=== PATIENT | male | born 1955 | race Caucasian/White ===

== ENCOUNTER 2019-04-15 22:36 | Emergency (ER) | payer MEDICAID, SELFPAY ==
[2019-04-15 22:38] VITALS: BP 146/99; PULSE 87; RESP 15; TEMP 36.6; O2SAT 96; BMI 27.3
--- NOTE | 2019-04-15 22:57 | RAD_ITS ---
STUDY: X-RAY - LEFT ANKLE REASON FOR EXAM: Male, 63 years old. Twisted ankle. Lateral pain and swelling. TECHNIQUE: view(s) of the ankle. COMPARISON: None. FINDINGS: Normal visualized distal tibia and fibula. Normal medial and lateral malleoli. Normal tibiotalar articulation and ankle mortise. Normal visualized talus. There are enthesophytes at the insertions of the Achilles tendon and plantar aponeurosis upon an otherwise normal calcaneus. The visualized subtalar, talonavicular, calcaneocuboid and tarsal articulations are normal. There is lateral soft tissue swelling suggesting sprain. RAD/Ankle min 3 Views IMPRESSION: Lateral soft tissue swelling without acute fracture or dislocation. Electronically Signed: Marcio Taylor DO at 23:16 EST Tel [phone], Service support ,
--- NOTE | 2019-04-15 23:34 | ED.DCSUM_ITS ---
- ER Visit Summary Date of Service: 04/15/19 Chief Complaint: [Injury to left ankle] History of Present Illness: The patient is a 63 M presents to the emergency department with an injury to the left ankle that occurred this afternoon. Patient states that he stepped on a bottom step near his mailbox and reach for the mailbox and slipped and twisted the ankle. Patient is able to bear some weight but having pain. He denies any other injuries. He has no medical history. [] Physical Examination: [Ankle-patient has soft tissue swelling over the lateral malleolus. Patient has some ecchymosis and bruising noted. He has tenderness to palpation over the lateral malleolus. No pain at the proximal fibular head. No pain at the base of the fifth metatarsal. Neurovascular intact distally.] Test Results: [Rays of the left ankle showed no fractures and only soft tissue swelling.] Emergency Department Course and Treatment: [An air splint and he refused crutches.] Treatment Plan: [Was advised to ice and elevate the extremity. Patient use ibuprofen or Tylenol for discomfort. Patient advised to follow-up with primary care physician manager enterprise content management for no doc within next 5 to 10 days.] Disposition: [Discharged home in stable condition.] Impression: [Left ankle sprain] This note was generated with [employer] dictation software. It may contain incorrect words, spelling, and punctuation that were not noted in review of the chart prior to signing ED Disposition - Plan for ED Patient: Referrals: Care Physician,No Primary [Primary Care Provider] -
--- NOTE | 2019-04-15 23:36 | ED.DEP ---
ED Disposition - Plan for ED Patient: Instructions: Sprain, Ankle, with X-Ray Referrals: Care Physician,No Primary [Primary Care Provider] - Johnny Colorado III, MD [STAFF PHYSICIAN] - 5-7 Days
== END 2019-04-15 23:42 | disposition home or self-care (01) ==
LOC: ED 23:19
PROVIDERS: Emergency Provider Emergency Medicine
DX: S93.402A Sprain of unspecified ligament of left ankle, initial encounter (principal); X50.1XXA Overexertion from prolonged static or awkward postures, initial encounter; W18.31XA Fall on same level due to stepping on an object, initial encounter; Y93.9 Activity, unspecified; Y92.9 Unspecified place or not applicable; Y99.9 Unspecified external cause status; Z72.0 Tobacco use
CPT/HCPCS: 73610; 99283

== ENCOUNTER → 2020-03-12 16:27 | Outpatient (CLI) | payer MEDICAID, SELFPAY ==
--- NOTE | 2020-03-12 16:29 | CT_ITS ---
STUDY: LOW DOSE CT LUNG CANCER SCREENING REASON FOR EXAM: Male, 64 years old. LUNG CANCER SCREENING, CURRENT SMOKER, 45+ YR SMOKER X 1PPD, TS=614 RADIATION DOSAGE (If Supplied By Facility): CTDIvol = ( 3.02 ) mGy, DLP = ( 102.32 ) mGycm TECHNIQUE: No contrast was administered. Low dose technique was utilized (average mAS-38 and kVp 120). 1.25 mm axial source images with a slice interval of 1.25-mm were reconstructed in lung windows. 2.5 mm axial source images with a slice interval of 2.5-mm were reconstructed in lung windows. 5.0 mm axial source images with a slice interval of 5.0-mm were reconstructed in soft tissue windows. Nodule measured using lung windows on PACS and/or independent workstation with automated measurement of minimum and maximum diameter. Nodule measurement reported as average diameter rounded to the nearest whole number. Growth is defined as an increase ins size of greater than 1.5 mm. COMPARISON: None. Findings: Lungs are moderately emphysematous with scattered myelomata all less than 3 mm, some calcified, scars and minimal atelectasis. There are no high-risk focal pulmonary findings. Central airways are patent. Pleural surfaces are intact. Mediastinal contents are normal but evaluated in limited fashion due to intrinsic limitations of technique. Corneae arteries are mildly diseased. Cardiac chambers are normal in size and shape. Pericardium is normal. Osseous structures are intact. CT/Low Dose CT Lung Screening IMPRESSION: Lung RADS category 2. Emphysema and granulomata. IMPORTANT NOTES FOR USE: ACR Lung-RADS Version 1.0 Assessment Categories Release Date: September 02, 2013 Category: Coded 0-4 bases on nodule(s) with highest degree of suspicion. Negative screen is defined as categories 1 and 2; a positive screen is defined as categories 3 and 4. Category 3 and 4A nodules that are unchanged on interval CT should be coded as category 2, and individuals returned to screening in 12 months. Category 4X: Category 3 or 4 nodules with additional imaging findings that increase the suspicion of lung cancer, such as spiculation, GGN that doubles in size in 1 year, enlarged lymph notes, etc. Category Modifiers: S (significant finding unrelated to lung cancer) and C (prior history of treated lung cancer) may be added to the 0-4 Lung-RADS Electronically Signed: Kam Tillman, at 20:06 EST Tel , Service support ,
== END ==
PROVIDERS: Referring Provider Nurse Practitioner Primary Care; Visit Provider Nurse Practitioner Primary Care
DX: Z12.2 Encounter for screening for malignant neoplasm of respiratory organs (principal); F17.210 Nicotine dependence, cigarettes, uncomplicated
CPT/HCPCS: G0297

== ENCOUNTER 2024-01-02 14:24 | Outpatient (CLI) | payer MEDICARE, SELFPAY ==
[2024-01-02 16:58] LABS: ALB/GLOB Ratio 0.8 RATIO (0.9-2.4); AST(SGOT) 57 U/L (15-37); Alanine Aminotransfer ALT/SGPT 68 U/L (16-61); Albumin, Serum 3.3 g/dL (3.2-5.0); Alkaline Phosphatase 76 U/L (45-117); Anion Gap 5 (5-15); BUN 14 mg/dL (7-18); Calcium,Total 9.2 mg/dL (8.5-10.1); Chloride 105 mmol/L (98-107); EST Glomerular Filtration Rate 79 mL/min (>60); Est Glom Filt Rate - Afr Amer 96 mL/min (>60); Globulin 4.4 g/dL (2.2-4.2); Glucose 97 mg/dL (74-106); Potassium 4.2 mmol/L (3.5-5.1); Protein, Total 7.7 g/dL (6.4-8.2); Sodium Level 140 mmol/L (136-145)
== END 2024-01-02 23:59 | disposition home or self-care (01) ==
PROVIDERS: PCP Family Medicine; Referring Provider Family Medicine; Visit Provider Family Medicine
DX: Z00.00 Encounter for general adult medical examination without abnormal findings (principal); Z82.3 Family history of stroke
CPT/HCPCS: 36415; 80053

== ENCOUNTER 2024-02-29 08:12 | Day surgery (SDC) | payer MEDICARE, MEDICAID, SELFPAY ==
[2024-02-29] VITALS (8 sets, daily range): BP systolic 115–151; BP diastolic 74–132; PULSE 64–80; RESP 16; TEMP 36.2–36.4; O2SAT 94–100; BMI 24.3
--- NOTE | 2024-02-29 08:35 | PRE.ANES_ITS ---
ASA Classification* ASA Classification ASA Classification: 2 Assessment & Plan Anesthesia* Anesthesia Assessment Anesthesia Assessment: Discussed sedation and/or anesthesia options, risks, benefits, and alternatives with patient/parents/legal guardian/POA. Questions invited. The patient/parents/legal guardian/POA seems to understand and agrees to proceed with anesthesia plan. Reviewed the physical assessment, medical history, allergy history and patient home medications list prior to surgery/procedure/anesthetic and documented any changes. Performed airway and anesthesia risk assessments. Anesthesia Type Anesthesia Type: MAC Anesthesia Focused Assessment* Airway Assessment Mouth opens: >3 cm Mallampati Score: II Focused Labs Anesthesia Preop lab: CBC CHEMISTRY Potassium 4.2 mmol/L (3.5-5.1) 01/02/24 14:26 Sodium 140 mmol/L (136-145) 01/02/24 14:26 BUN 14 mg/dL (7-18) 01/02/24 14:26 Creatinine 1.00 mg/dL (0.70-1.30) 01/02/24 14:26 Glucose 97 mg/dL (74-106) 01/02/24 14:26 COAG Pre-Assessment Diagnosis/Proposed Procedure Planned Operative Procedure(s): CSCOPE Anesthesia History Anesthesia History - clerk of superior court: Anesthesia History - clerk of superior court Hx Hospitalization No 02/28/24 12:23 Any Problems With Anesthesia No 02/28/24 12:23 Cholinesterase deficiency No 02/28/24 12:23 You/Your Family Experience No 02/28/24 12:23 fever (hyperthermia) with Relationship Recent Exposure to Contagious Disease Does patient have nerve No 02/28/24 12:23 stimulator Patient instructed to have device shut off --Does patient have Pacemaker or ICD? When Was Last Pacemaker Check QUESTION #4 FULL TEXT: You/Your Family Experience fever (hyperthermia) with Anesthesia Last Oral Intake Last Oral intake: Last Oral Intake NPO since Meds taken in AM with sips of water? Meds patient instructed to take am of surgery PONV PONV - clerk of superior court: PONV - clerk of superior court Female No 02/28/24 12:23 HX of Motion Sickness No 02/28/24 12:23 HX of N/V After Surgery No 02/28/24 12:23 Non-Smoker No 02/28/24 12:23 Duration of Surgery greater No 02/28/24 12:23 than 60 minutes Number of Risk Factors PONV Score Height & Weight Height & Weight: Anesthesia: Height & Weight Height 5 ft 8 in 01/26/24 13:31 Respiratory Assessment Respiratory Assessment - clerk of superior court: Respiratory Tract Infection Hx - clerk of superior court Hx Respiratory Tract Infection No 02/28/24 12:23 STOP Sleep Apnea STOP Sleep Apnea - clerk of superior court: STOP Sleep Apnea - clerk of superior court Hx Hypertension No 02/28/24 12:23 Hx Sleep Apnea No 02/28/24 12:23 CPAP BIPAP Do you snore loudly (louder No 02/28/24 12:23 than talking or can be heard Do you often feel tired/ No 02/28/24 12:23 fatigued/ sleepy during daytime? Has anyone observed you stop No 02/28/24 12:23 breathing during sleep? STOP Results Negative 02/28/24 12:23 QUESTION #5 FULL TEXT : Do you snore loudly (louder than talking or can be heard through closed doors)? 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 Specify any problems Hx of Preganancy in last 3 N/A 02/28/24 12:23 Months Nurse Filling Out Transfusion DSCHRIBER 02/28/24 12:23 & Questions: Date: 02/28/24 02/28/24 12:23 Time: 12:25 02/28/24 12:23 Patient unable to answer at this time (ie. confused, unrespo /Reproduction History /Reproductive History - clerk of superior court: /Reproductive Hx- clerk of superior court Hx Now No 02/28/24 12:23 Gestational Age (in weeks): EDC: Hx Hx Para Hx Section SAB No 02/28/24 12:23 PFSH Medical History Loss of hearing Wears glasses Complete edentulism, class III Marijuana use Alcohol use Back pain Smoker Positive colorectal cancer screening using Cologuard test Smoking greater than 40 pack years COPD (chronic obstructive pulmonary disease) Physical exam, annual Family history of diabetes mellitus Neuropathy Home Medications ?Medication ?Instructions ?Recorded ?Last Taken ?Type NK 04/15/19 Unknown History Allergy/AdvReac Type Severity Reaction Status Date / Time No Known Allergies Allergy Verified 02/28/24 12:23 Family History Mother Myocardial infarction Surgical History Hx of bilateral inguinal hernia repair H/O vasectomy Social History household members: children housing: house current occupational status: retired Smoking Status: Current every day smoker tobacco type: cigarettes alcohol intake: never substance use type: marijuana what type of physical activity do you participate in: walking frequency: 1-2 times per week seatbelt use: always do you feel safe at home: Yes Review of Systems (Anesthesia) ROS Narrative System reviewed and no additional complaints, except as documented.
--- OUTSIDE RECORDS SUMMARY | 2024-02-29 08:37 | XMS RPT_ITS | CCD ---
Author Organization [facility] DIRECTOR OF [employer] [facility] Results Test Name Value Interpretation Reference Range Facil ity .Auto Diffon 03-26-2020 Ammonia (P) [Mass/Vol] 1.00 10 3/mcL Normal 0.15-1.00 [facility] ([place]) Comment on above: Performed By: #### GABRIELLA SIFUENTES ANEU #### Shai [address] [address] Basophils (Bld) [#/Vol] 0.10 10 3/mcL Normal 0.00-0.19 [facility] ([place] Comment on above: Performed By: #### GABRIELLA SIFUENTES ANEU #### Shai [address] [address] Basophils/100 WBC (Bld) 0.9 % Normal 0.0-2.5 [facility] [place] Comment on above: Performed By: #### GABRIELLA SIFUENTES ANEU #### Shai [address] [address] Eosinophils (Bld) [#/Vol] 0.40 10 3/mcL Normal 0.00-0.40 [facility] [place] Comment on above: Performed By: #### GABRIELLA SIFUENTES ANEU #### Shai [address] [address] Eosinophils/100 WBC (Bld) 4.4 % Normal 0.0-7.0 [facility] [place] Comment on above: Performed By: #### GABRIELLA SIFUENTES, ANEU #### Shai [address] [address] Lymphocytes (Bld) [#/Vol] 2.90 10 3/mcL Normal 0.77-3.85 [facility] ([place]) Comment on above: Performed By: #### C BC, ADIFF, ANEU #### [address] [address] Lymphocytes/100 WBC (Bld) 29.6 % Normal 10.0-50.0 [facility] Comment on above: Performed By: #### C BC, ADIFF, ANEU #### [address] [address] Monocytes/100 WBC (Bld) 10.0 % Normal 1.7-13.0 [facility] Comment on above: Performed By: #### C BC, ADIFF, ANEU #### [address] [address] Neutrophils/100 WBC (Bld) 55.1 % Normal 37.0-80.0 [facility] Comment on above: Performed By: #### C BC, ADIFF, ANEU #### [address] [address] .GFRon 03-26-2020 GFR 117 ml/min/1.73sqm Normal [facility] Comment on above: Result Comment: GFR Population mean for , Non- Americans Ages 20-29 = 116 mL/min/1.73 sq.m. Ages 30-39 = 107 mL/min/1.73 sq.m. Ages 40-49 = 99 mL/min/1.73 sq.m. Ages 50-59 = 93 mL/min/1.73 sq.m. Ages 60-69 = 85 mL/min/1.73 sq.m. Ages 70+ = 75 mL/min/1.73 sq.m. Chronic Kidney Disease: Less than 60 mL/min/1.73 square meters End Stage Renal Disease: Less than 15 mL/min/1.73 square meters Performed By: #### B MP, GFR #### [address] [address] GFR Non- 96 ml/min/1.73sqm Normal [facility] Comment on above: Result Comment: GFR Population mean for , Non- Americans Ages 20-29 = 116 mL/min/1.73 sq.m. Ages 30-39 = 107 mL/min/1.73 sq.m. Ages 40-49 = 99 mL/min/1.73 sq.m. Ages 50-59 = 93 mL/min/1.73 sq.m. Ages 60-69 = 85 mL/min/1.73 sq.m. Ages 70+ = 75 mL/min/1.73 sq.m. Chronic Kidney Disease: Less than 60 mL/min/1.73 square meters End Stage Renal Disease: Less than 15 mL/min/1.73 square meters Performed By: #### B MP, GFR #### [address] [address] .NEUABSon 03-26-2020 Neutrophils (Bld) [#/Vol] 5.40 10 3/mcL Normal 2.85-6.16 [facility] Comment on above: Performed By: #### C BC, GABRIELLA, ANEU #### [address] [address] BMPon 03-26-2020 Calcium [Mass/Vol] 9.0 mg/dL Normal 8.4-10.2 [facility] ([place]) Comment on above: Performed By: #### B MP, GFR #### [address] [address] Chloride [Moles/Vol] 105 mmol/L Normal 98-107 [facility] ([place]) Comment on above: Performed By: #### B MP, GFR #### [address] [address] CO2 [Moles/Vol] 28 mmol/L Normal 23-31 [facility] ([place]) Comment on above: Performed By: #### B MP, GFR #### [address] [address] Creatinine [Mass/Vol] 0.81 mg/dL Normal 0.70-1.30 [facility] ([place] Comment on above: Performed By: #### B MP, GFR #### [address] [address] Electrolyte Balance 6.0 mEq/L Normal [facility] ([place]) Comment on above: Performed By: #### B MP, GFR #### [address] [address] Glucose [Mass/Vol] 94 mg/dL Normal 80-115 [facility] ([place]) Comment on above: Performed By: #### B MP, GFR #### [address] [address] Potassium [Moles/Vol] 4.3 mmol/L Normal 3.5-5.1 [facility] ([place] Comment on above: Performed By: #### B MP, GFR #### [address] [address] Sodium [Moles/Vol] 139 mmol/L Normal 136-145 [facility] ([place]) Comment on above: Performed By: #### B MP, GFR #### [address] [address] Urea nitrogen [Mass/Vol] 21 mg/dL High 7-18 [facility] Comment on above: Performed By: #### B MP, GFR #### [address] [address] Urea nitrogen/Creatinine [Mass ratio] 26 ratio Normal 7-27 [facility] Comment on above: Performed By: #### B MP, GFR #### [address] [address] CBCon 03-26-2020 Erythrocyte distribution width (RBC) [Ratio] 12.8 % Normal 11.5-14.5 [facility] Comment on above: Performed By: #### GABRIELLA SIFUENTES, ANEU #### [address] [address] Hematocrit (Bld) [Volume fraction] 47.9 % Normal 42.0-52.0 [facility] [place] Comment on above: Performed By: #### GABRIELLA SIFUENTES, ANEU #### [address] [address] Hemoglobin (Bld) [Mass/Vol] 16.2 G/dL Normal 14.0-18.0 [facility] [place] Comment on above: Performed By: #### GABRIELLA SIFUENTES, ANEU #### [address] [address] MCH (RBC) [Entitic mass] 30.8 pg Normal 27.0-31.2 [facility] [place] Comment on above: Performed By: #### GABRIELLA SIFUENTES, ANEU #### [address] [address] MCHC (RBC) [Mass/Vol] 33.8 G/dL Normal 31.8-35.4 [facility] [place] Comment on above: Performed By: #### GABRIELLA SIFUENTES, ANEU #### [address] [address] MCV (RBC) [Entitic vol] 91.2 fL Normal 80.0-94.0 [facility] [place] Comment on above: Performed By: #### GABRIELLA SIFUENTES, ANEU #### [address] [address] Platelet mean volume (Bld) [Entitic vol] 10.1 fL Normal 7.4-10.4 [facility] ([place]) Comment on above: Performed By: #### GABRIELLA SIFUENTES, ANEU #### [address] [address] Platelets (Bld) [#/Vol] 175 10 3/mcL Normal 130-400 [facility] ([place] Comment on above: Performed By: #### C GABRIELLA RESENDIZ, ANEU #### [address] [address] RBC (Bld) [#/Vol] 5.25 10 6/mcL Normal 4.04-6.13 [facility] ([place]) Comment on above: Performed By: #### GABRIELLA SIFUENTES, ANEU #### [address] [address] WBC (Bld) [#/Vol] 9.80 10 3/mcL Normal 4.60-10.80 [facility] ([place]) Comment on above: Performed By: #### C GABRIELLA RESENDIZ ANEU #### [id number] [place], [place] [address] Summary Purpose Family History No Family History Records Found Advance Directives No Advanced Directives Records Found Additional Source Comments (unrecognized sect ion and content) No Status Records Found INFORMATION SOURCE (unrecogn ized section and content) DATE CREATED AUTHOR 03/27/2020 [facility] ([place]) FOR RECORDS PERTAINING TO PATIENTS WHO ARE OR HAVE BEEN ENROLLED IN A CHEMICAL DEPENDENCY/SUBSTANCEABUSE PROGRAM, SOME INFORMATION MAY BE OMITTED. This clinical summary was aggregated from multiple sources. Caution should be exercised in using it in the provision of clinical care. This summary normalizes information from multiple sources, and as a consequence, information in this document may materially change the coding, format and clinical context of patient data. In addition, data may be omitted in some cases. CLINICAL DECISIONS SHOULD BE BASED ON THE PRIMARY CLINICAL RECORDS. [employer] provides no warranty or guarantee of the accuracy or completeness of information in this document.
--- NOTE | 2024-02-29 09:30 | COLBX_PTH ---
PATHOLOGY RESULTS PATIENT: LELA ESTRADA LOC: EN U#:[id number] AGE/SX: 68/M ROOM: RE02/29/[address]: Dr. Jeyson Oakley MD : [id number] BED: DIS: 02/29/2024 SPEC #: [id number] RECD: 02/29/24 13:47 STATUS: FEDERICO LIZZY #: [id number] MAYTE: 02/29/24 09:[address]: Jeyson Oakley DEPT: SURGICAL PATHOLOGY RECD BY: Micheal Shah ENTERED: 02/29/24 14:39 SP TYPE: COLON BX OTHR DR: Dr. Cornelio Maria, DO Tissues: Rectum, NOS Cecum, NOS Ascending colon Sigmoid colon biopsy Sigmoid colon biopsy Sigmoid colon biopsy Sigmoid colon biopsy Sigmoid colon biopsy Rectum, NOS Rectum, NOS Procedures: Surgery Specimen Level IV HEADER OPERATION: Colonoscopy, polypectomy PRE-OP DIAGNOSIS: Positive colorectal cancer screening using Cologaurd TISSUE SUBMITTED: A- Rectal polyps x2, B- Cecum polyp biopsy, C- Ascending polyp, D- Sigmoid polyp biopsy x2, E- SigmoiD polyp #2, F- Sigmoid polyp #3 biopsy, G- Sigmoid polyp #4, H- Sigmoid polyp @18cm #5, I- Abnormal rectal mucosa biopsy, J- Rectal polyp MICROSCOPIC DIAGNOSIS A. Rectal polyps x2, polypectomy: Tubular adenoma. Hyperplastic polyp. B. Cecum, biopsy: Tubular adenoma. C. Ascending colon polyp, polypectomy: Fragments of tubular adenoma. D. Sigmoid colon polyp x2, biopsy: Fragments of hyperplastic polyp. E. Sigmoid polyp at 18cm #2, polypectomy: Hyperplastic polyp with cautery artifacts. F. Sigmoid polyp #3, biopsy: Fragments of hyperplastic polyp. G. Sigmoid polyp #4, polypectomy: Tubular adenoma. H. Sigmoid polyp #5 at 18 cm, polypectomy: Fragments of villous adenoma with focal features of serrated adenoma and with focal high-grade dysplasia. See comment. I. Abnormal rectal mucosa, biopsy: Fragments of hyperplastic polyp. J. Rectal polyp, polypectomy: Fragments of hyperplastic polyp. SJ.mr 03/01/2024 COMMENT H. High grade dysplastic changes are noted at luminal surface of the polyp. Correlation with clinical, endoscopic findings and appropriate follow up are necessary. Case has been reviewed in consultation with Dr. Hilton who concurs with the above diagnosis. IDC:AM MICROSCOPIC DESCRIPTION Slides are reviewed. GROSS DESCRIPTION A. Received in fixative is one container labeled with the patient's name and designated Rectal polyps x2. The specimen consists of two irregular fragments of light delgado soft tissue that in aggregate measure 0.8 x 0.4 x 0.2 cm. The specimen is totally submitted in one cassette. B. Received in fixative is one container labeled with the patient's name and designated Cecum polyp biopsy. The specimen consists of one irregular fragment of light delgado soft tissue that measures 0.3 x 0.3 x 0.1 cm. The specimen is totally submitted in one cassette. C. Received in fixative is one container labeled with the patient's name and designated Ascending polyp biopsy. The specimen consists of multiple irregular fragments of delgado-pink polyp that in aggregate measure 2.0 x 1.2 x 0.3 cm. The specimen is totally submitted in one cassette. D. Received in fixative is one container labeled with the patient's name and designated Sigmoid polyp. The specimen consists of multiple irregular fragments of light delgado soft tissue that in aggregate measure 1.0 x 0.3 x 0.1 cm. The specimen is totally submitted in one cassette. E. Received in fixative is one container labeled with the patient's name and designated Sigmoid polyp #2. The specimen consists of one irregular fragment of light delgado soft tissue that measures 0.5 x 0.4 x 0.1 cm. The specimen is totally submitted in one cassette. F. Received in fixative is one container labeled with the patient's name and designated Sigmoid polyp #3. The specimen consists of two irregular fragments of light delgado soft tissue that in aggregate measure 0.6 x 0.3 x 0.1 cm. The specimen is totally submitted in one cassette. G. Received in fixative is one container labeled with the patient's name and designated Sigmoid polyp #4. The specimen consists of two irregular fragments of light delgado soft tissue that in aggregate measure 0.8 x 0.5 x 0.2 cm. The specimen is totally submitted in one cassette. H. Received in fixative is one container labeled with the patient's name and designated Sigmoid polyp @ 18cm #5. The specimen consists of a delgado-pink polyp measuring 2.0 x 1.2 x 1.0cm. The presumed base is inked. The polyp is serially sectioned. Also present in the container are multiple fragments of delgado soft tissue measuring in aggregate 2.5 x 1.0 x 0.2cm. The entire specimen is submitted in two cassettes. 1- smaller fragment of tissue, 2- serially sectioned polyp. I. Received in fixative is one container labeled with the patient's name and designated Abnormal rectal mucosa biopsy. The specimen consists of two irregular fragments of light delgado soft tissue that in aggregate measure 0.6 x 0.3 x 0.1 cm. The specimen is totally submitted in one cassette. J. Received in fixative is one container labeled with the patient's name and designated Rectal polyp. The specimen consists of multiple irregular fragments of light delgado soft tissue that in aggregate measure 0.6 x 0.3 x 0.1 cm. The specimen is totally submitted in one cassette. SJ 02/29/2024 TC:1 CPT:23916w22
--- NOTE | 2024-02-29 09:37 | HP.PCM_ITS ---
History and Physical Date of Admission: 02/29/24 Date of Service: 01/26/24 MR#: [id number] Acct: [id number] Name: LELA ESTRADA Rep #: [id number] : 1955 Provider: Dr. Jeyson Oakley MD Age/Sex: 68/M Location: [facility] Status: Signed Intake Vital Signs 01/01/2413:55 01/25/2413:31 Height 5 ft 8 in 5 ft 8 in Weight: 164 lb 6 oz 164 lb BMI 25.0 24.9 BP 122/60 H 123/79 H Blood Pressure Location Lt brachial Lt brachial Position Sitting Sitting Respiration 16 18 Pulse 82 65 Pulse Source Monitor Monitor Temp 98.2 F Temp Source Temporal Pulse Oximetry (%) 96 97 Oxygen Delivery Method room air room air Intake Visit Reasons: POSITIVE COLOGUARD Chief Complaint: Positive Cologuard Web Marketing Coordinator Required: No Is patient in pain?: No Allergies No Known Allergies Allergy (Verified 01/26/24 13:32) Medications ?Medication ?Instructions ?Recorded ?Confirmed ?Type NK 04/15/19 01/26/24 History Have you fallen in the past year?: No [facility] Medical History (Updated 01/26/24 @ 17:[address] Jeyson Oakley MD) Smoking greater than 40 pack years Family history of diabetes mellitus Physical exam, annual COPD (chronic obstructive pulmonary disease) Positive colorectal cancer screening using Cologuard test Back pain Vision problems Neuropathy Surgical History H/O vasectomy History of hernia surgery Family History Mother Myocardial infarction Social History household members: children housing: house current occupational status: retired Smoking Status: Current every day smoker alcohol intake: never substance use type: marijuana what type of physical activity do you participate in: walking frequency: 1-2 times per week seatbelt use: always do you feel safe at home: Yes HPI HPI HPI: Patient is a 68-year-old male who presents for need to schedule diagnostic colonoscopy secondary to positive Cologuard testing. They are referred for surgical consultation from Dr. Maria. Patient has not had prior Cologuard testing or colonoscopy. Patient has no personal history of colon cancer, inflammatory bowel disease, or diverticulitis. They describe their bowel habits as normal. They have approximately 1 bowel movements per day and spend roughly 5 minutes on the toilet without significant straining. They have not noticed recent bleeding or dark stools, but shared that they did see some dark stools several months ago. They note that it seems to be dependent on what their diet includes at the time. They share that they inconsistently take a vitamin supplement that contains iron and also consume boost that contains iron. They confirm a history of hemorrhoids remotely?manifesting as simply irritation that was alleviated with use of Preparation H. Patient has no family history of colon cancer, inflammatory bowel disease, or diverticulitis. The patient's weight is stable. The patient is not prescribed anticoagulants/blood thinners. Relevant prior abdominal surgical history includes: Bilateral inguinal hernia repair performed a couple of years ago at [facility] Patient does not have a significant history of GERD/heartburn ROS General General: No weight change, appetite, fatigue, colon cancer, breast cancer or weakness HEENT HEENT: No difficulty swallowing, eye injury, eye surgery, swollen glands or hoarseness Endo Endocrine: No thyroid disease, diabetes mellitus, thyroid cancer, Hair loss, heat intolerance or cold intolerance Skin Skin: No rash or changing moles Breast Breast: No left breast lump, right breast lump, nipple discharge, breast pain, abnormal mammogram, abnormal US or breast enlargement Musc Musculoskeletal: No back problems, arthritis, rheumatoid arthritis, gout or joint pain Cardio Cardiovascular: No murmur, pacemaker, heart disease, atrial fibrillation, high blood pressure, heart attack, heart stent, palpitations, shortness of breat with exertion or chest pain Psych Psychiatric: No depression, anxiety or hearing voices Resp Respiratory: No shortness of breath, No sleep apnea, No cough, No COPD, No asthma, No emphysema and No wheezing Gastro Gastrointestinal: No abdominal pain, No nausea or vomiting, No diarrhea, No constipation, No blood in stool, No acid reflux, No hemorrhoids, No ulcers, No gallbladder problem and No black,tarry stools Additional Details: Positive cologuard Abdullahi Hematologic: No blood thinners, No blood disorders, No bleeding, No anemia and No blood clots Neuro Neurologic: No system reviewed and no additional complaints, except as documented, No as per HPI, No abnormal gait, No abnormal hearing, No abnormal movements, No abnormal speech, No behavioral changes, No burning sensations, No confusion, No convulsions, No disequilibrium, No dizziness, No localized weakn ess, No frequent falls, No headache(s), No lack of coordination, No loss of vision, No memory loss, No numbness, No other visual disturbances, No radicular pain, No restless legs, No sensory deficit, No syncope, No tingling, No tremor(s), No weakness and No other Exam Const General: cooperative, healthy appearing and comfortable Orientation: alert, awake and oriented x3 Resp Effort & Inspection: normal respiratory effort GI Other: No scars, nondistended, soft, nontender to palpation x 4 quadrants Assessment and Plan Assessment and Plan (1) Positive colorectal cancer screening using Cologuard test: Status: Acute Comment: Patient is 68-year-old male, with minimal past medical history and no prior history of colon screening, who presents for diagnostic colonoscopy after positive Cologuard testing. He appears to be at average risk for colon cancer based on his history and denies any GI symptoms. I discussed the need to proceed with colonoscopy given his test result and he is in agreement. The det ails of both the procedure as well as post procedure results reporting were discussed. He expresses understanding. Plan: Plan will be to complete colonoscopy on first mutually agreeable date under local MAC. Pre-procedure prep discussed and paper instructions provided. Patient is also made aware that he will need to have a new autos delivery driver with him the day of the procedure. I have examined the patient and the H&P has been reviewed. There are no clinical changes since date of exam. Patient confirms that he completed prep for today's procedure and his output is now clear. He denies any development of bleeding or other GI issues. He also denies any questions related to the procedure. Will now proceed to endoscopy suite for planned colonoscopy after positive Cologuard testing.
[2024-02-29] MEDS: 0.9% Saline Lock 10 ML Syringe IV (11:30)
--- NOTE | 2024-02-29 11:53 | PCM.POST.ANE ---
Anesthesia: Postop Eval I Current Vital Signs Temperature: 97.1 F Pulse Rate: 80 Blood Pressure: 140/91 Respiratory Rate: 16 Pulse Ox: 100 Oxygen Delivery Method: Room Air Assessment Airway patent: Yes Spontaneous unlabored respirations: Yes Mental status: Asleep nausea: No Vomiting: No Anesthesia Complication: No Fluid Hydration Crystalloid volume administer (ml): 200 Total IV fluid infused: 200 Progress Note Anesthesia document: Postop Eval 1 completed: Yes
--- NOTE | 2024-02-29 11:55 | OP.COLON_ITS ---
Patient Name: Anil George Procedure Date: 02/29/2024 9:41 AM Date of : 1955 Age: 68 Procedure: Colonoscopy Indications: Positive Cologuard test Providers: Jeyson Oakley MD Medicines: See the Anesthesia note for documentation of the administered medications Patient Profile: Last Colonoscopy: none. The patient's first colonoscopy is today. Complications: No immediate complications. Estimated blood loss: Minimal. Procedure: Pre-Anesthesia Assessment: - The heart rate, respiratory rate, oxygen saturations, blood pressure, adequacy of pulmonary ventilation, and response to care were monitored throughout the procedure. After I obtained informed consent, the scope was passed under direct vision. Throughout the procedure, the patient's blood pressure, pulse, and oxygen saturations were monitored continuously. The colonoscope was introduced through the anus and advanced to the cecum, identified by appendiceal orifice and ileocecal valve. The colonoscopy was technically difficult and complex due to unsatisfactory bowel prep. Successful completion of the procedure was aided by lavage. The patient tolerated the procedure well. Scope In: 9:54:10 AM Scope Withdrawal Time 1 hour 29 minutes 43 seconds Scope Out: 11:38:06 AM Total Procedure Duration Time 1 hour 43 minutes 56 seconds Findings: The perianal and digital rectal examinations were normal. A 3 mm, non-bleeding polyp was found in the cecum. The polyp was semi-sessile. Biopsies were taken with a cold forceps for histology. Estimated blood loss was minimal. A 5 mm polyp was found in the ascending colon. The polyp was semi-pedunculated. The polyp was removed with a hot snare. Resection and retrieval were complete. Estimated blood loss was minimal. Two semi-sessile polyps were found in the sigmoid colon. The polyps were 3 to 7 mm in size. Biopsies were taken with a cold forceps for histology. Estimated blood loss was minimal. Estimated blood loss was minimal. A 5 mm polyp was found in the sigmoid colon. The polyp was semi-pedunculated. The polyp was removed with a hot snare. Resection and retrieval were complete. A 10 mm polyp was found in the mid sigmoid colon. The polyp was semi-pedunculated. The polyp was removed with a hot snare. Resection and retrieval were complete. Estimated blood loss: none. A 5 mm, non-bleeding polyp was found in the sigmoid colon. The polyp was semi-pedunculated. The polyp was removed with a hot snare. Resection and retrieval were complete. Estimated blood loss was minimal. A 25 mm polyp was found in the distal sigmoid colon. The polyp was semi-pedunculated. The polyp was removed with a piecemeal technique using a hot snare. Resection and retrieval were complete. Area was successfully injected with 3 mL saline for a lift polypectomy. Area was tattooed with an injection of 2 mL of Vernell ink. Estimated blood loss was minimal. Three semi-sessile polyps were found in the rectum. The polyps were 3 to 7 mm in size. Biopsies were taken with a cold forceps for histology. Estimated blood loss was minimal. A localized area of mildly glandular mucosa was found in the proximal rectum. Biopsies were taken with a cold forceps for histology. Estimated blood loss was minimal. The retroflexed view of the distal rectum and anal verge was normal and showed no anal or rectal abnormalities. No biopsies or other specimens were collected for this exam. Multiple small and large-mouthed diverticula were found in the sigmoid colon. No biopsies or other specimens were collected for this exam. Impression: - One 3 mm, non-bleeding polyp in the cecum. Biopsied. - One 5 mm polyp in the ascending colon, removed with a hot snare. Resected and retrieved. - Two 3 to 7 mm polyps in the sigmoid colon. Biopsied. - One 5 mm polyp in the sigmoid colon, removed with a hot snare. Resected and retrieved. - One 10 mm polyp in the mid sigmoid colon, removed with a hot snare. Resected and retrieved. - One 5 mm, non-bleeding polyp in the sigmoid colon, removed with a hot snare. Resected and retrieved. - One 25 mm polyp in the distal sigmoid colon, removed piecemeal using a hot snare. Resected and retrieved. Injected. Tattooed. - Three 3 to 7 mm polyps in the rectum. Biopsied. - Glandular mucosa in the proximal rectum. Biopsied. - The distal rectum and anal verge are normal on retroflexion view. - Diverticulosis in the sigmoid colon. No specimens collected. Recommendation: - Discharge patient to home (via wheelchair). - High fiber diet today. - No aspirin, ibuprofen, naproxen, or other non-steroidal anti-inflammatory drugs for 2 days after biopsy. - Await pathology results. - Repeat colonoscopy date to be determined after pending pathology results are reviewed for surveillance based on pathology results. - Telephone my office for pathology results in 1 week. Procedure Code(s): --- Professional --- 85005, Colonoscopy, flexible; with removal of tumor(s), polyp(s), or other lesion(s) by snare technique 88886, 59, Colonoscopy, flexible; with biopsy, single or multiple 86726, Colonoscopy, flexible; with directed submucosal injection(s), any substance Diagnosis Code(s): --- Professional --- D12.0, Benign neoplasm of cecum D12.2, Benign neoplasm of ascending colon D12.5, Benign neoplasm of sigmoid colon D12.8, Benign neoplasm of rectum R19.5, Other fecal abnormalities K57.30, Diverticulosis of large intestine without perforation or abscess without bleeding CPT copyright 2021 [employer]. All rights reserved. The codes documented in this report are preliminary and upon film producer review may be revised to meet current compliance requirements. Jeyson Oakley MD 02/29/2024 11:55:13 AM This report has been signed electronically. Number of Addenda: 0 Note Initiated On: 02/29/2024 9:41 AM
--- NOTE | 2024-02-29 11:55 | OP.CCLET_ITS ---
02/29/2024 Cornelio Maria Re : Colonoscopy procedure for Anil George Dear Dr. Maria This procedure was performed on February. My impressions and recommendations are as follows: Impressions : - One 3 mm, non-bleeding polyp in the cecum. Biopsied. - One 5 mm polyp in the ascending colon, removed with a hot snare. Resected and retrieved. - Two 3 to 7 mm polyps in the sigmoid colon. Biopsied. - One 5 mm polyp in the sigmoid colon, removed with a hot snare. Resected and retrieved. - One 10 mm polyp in the mid sigmoid colon, removed with a hot snare. Resected and retrieved. - One 5 mm, non-bleeding polyp in the sigmoid colon, removed with a hot snare. Resected and retrieved. - One 25 mm polyp in the distal sigmoid colon, removed piecemeal using a hot snare. Resected and retrieved. Injected. Tattooed. - Three 3 to 7 mm polyps in the rectum. Biopsied. - Glandular mucosa in the proximal rectum. Biopsied. - The distal rectum and anal verge are normal on retroflexion view. - Diverticulosis in the sigmoid colon. No specimens collected. Recommendations : - Discharge patient to home (via wheelchair). - High fiber diet today. - No aspirin, ibuprofen, naproxen, or other non-steroidal anti-inflammatory drugs for 2 days after biopsy. - Await pathology results. - Repeat colonoscopy date to be determined after pending pathology results are reviewed for surveillance based on pathology results. - Telephone my office for pathology results in 1 week. My findings are described in the full procedure note, which is enclosed. If I can be of further assistance, please feel free to contact me at Doctor phone number(s): , Work: . Sincerely, Jeyson Oakley MD 02/29/2024 11:55:13 AM This report has been signed electronically.
--- NOTE | 2024-02-29 12:05 | PCM.POSTANE2 ---
Anesthesia Postop Eval I Sum Postop Eval Completion status Anesthesia document: Postop Eval 1 completed: Yes Anesthesia Postop Eval I Summary Anesthesia Postop Eval I Summary: Anesthesia Postop Eval I: Assessment Summary Airway patent Yes 02/29/24 11:54 [email or web address] Spontaneous unlabored Yes 02/29/24 11:54 [email or web address] respirations Mental status Asleep 02/29/24 11:54 [email or web address] nausea No 02/29/24 11:54 [email or web address] Vomiting No 02/29/24 11:54 [email or web address] Anesthesia Postop Eval I: Fluid Summary Crystalloid volume administer 200 02/29/24 11:54 [email or web address] (ml) Colloids volume administered ( ml) Blood Product volume administered (ml) Total IV fluid infused 200 02/29/24 11:54 [email or web address] Anesthesia Postop Eval I: Summary Notes Anesthesia Complication No 02/29/24 11:54 [email or web address] Anesthesia Complication Comment: Post-operative progress note Anesthesia: Postop Eval II Evaluation Mental status: Awake Pain Level: 0 nausea: No Vomiting: No
== END 2024-02-29 12:37 | disposition home or self-care (01) ==
LOC: EN 08:16 → AC 08:17
PROVIDERS: PCP Family Medicine; Referring Provider Family Medicine; Visit Provider Surgery
PROC: 0DJD8ZZ Inspection of Lower Intestinal Tract, Via Natural or Artificial Opening Endoscopic (ICD-10-PCS; CPT 45378; principal; 2024-02-29 09:25)
DX: D12.0 Benign neoplasm of cecum (principal); J44.9 Chronic obstructive pulmonary disease, unspecified; F17.200 Nicotine dependence, unspecified, uncomplicated; D12.5 Benign neoplasm of sigmoid colon; K57.30 Diverticulosis of large intestine without perforation or abscess without bleeding; Z90.49 Acquired absence of other specified parts of digestive tract; D12.2 Benign neoplasm of ascending colon; D12.8 Benign neoplasm of rectum; R19.5 Other fecal abnormalities
CPT/HCPCS: 45385; 45380; 45381; 88305; A4216; A4648; J2405